=== PATIENT | male | born 1975 | race African-American/Black ===

== ENCOUNTER 2016-03-03 02:19 | Emergency (ER) | payer SELFPAY ==
[2016-03-03] MEDS ORDERED: KETOROLAC TROMETHAMINE INJ/PF 30 MG/1 ML SDV IV ONE (03:30)
[2016-03-03] MEDS ORDERED: METHOCARBAMOL INJ/PF 1000 MG/10 ML SDV IV ONE (03:31)
[2016-03-03] MEDS ORDERED: METOCLOPRAMIDE HCL INJ/PF 10 MG/2 ML SDV IV ONE (03:31)
[2016-03-03] MEDS ORDERED: DIPHENHYDRAMINE HCL 50 MG/ML VIAL IV ONE (03:31)
[2016-03-03] MEDS ORDERED: NORMAL SALINE 1000 ML 1,000 ML IV ONE (03:31)
--- NOTE | 2016-03-03 03:33 | ER Document Report ---
ED Headache - General Chief Complaint: Headache Stated Complaint: HEADACHE Time seen by provider: 03:25 Notes: Patient is a 40-year-old male that comes emergency department for chief complaint of a headache that has been going on intermittently for over a week. He states that he is not nauseated and has not had vomiting, he is slightly sensitive to the light, he is not sensitive to sound. Patient states he has had headaches like this in the past but not for a while. Patient reports soreness in his neck and right shoulder area, he is a scott at work. He denies any injuries to his shoulders, neck, head, denies fevers. Patient denies any daily medications, used to be on blood pressure medication but no longer is. TRAVEL OUTSIDE OF THE [place] IN LAST 30 DAYS: No - Related Data Allergies/Adverse Reactions: No Known Allergies Allergy (Verified 12/14/15 11:10) Past Medical History - General Information source: Patient - Social History Smoking Status: Former Smoker Frequency of alcohol use: Social Drug Abuse: None Lives with: Family Family History: CVA, Hypertension, Malignancy Patient has suicidal ideation: No Patient has homicidal ideation: No - Past Medical History Cardiac Medical History: Reports: Hx Hypertension Neurological Medical History: Reports: Hx Migraine Endocrine Medical History: Reports: Hx Diabetes Mellitus Type 2 Renal/ Medical History: Denies: Hx Peritoneal Dialysis Past Surgical History: Reports: Hx Orthopedic Surgery - left hip - Immunizations Hx Diphtheria, Pertussis, Tetanus Vaccination: Yes Review of Systems - Review of Systems Constitutional: No symptoms reported EENT: No symptoms reported Cardiovascular: No symptoms reported Respiratory: No symptoms reported Gastrointestinal: No symptoms reported Genitourinary: No symptoms reported Male Genitourinary: No symptoms reported Musculoskeletal: See HPI Skin: No symptoms reported Hematologic/Lymphatic: No symptoms reported Neurological/Psychological: See HPI Physical Exam - Vital signs Vitals: Temp Pulse Resp BP Pulse Ox 98.1 F 89 18 130/82 H 99 03/03/16 02:27 03/03/16 02:27 03/03/16 02:27 03/03/16 02:27 03/03/16 02:27 Interpretation: Normal - General General appearance: Alert In distress: Mild - Patient is mildly uncomfortable, squinting his eyes, moves slightly stiffly - HEENT Head: Normocephalic, Atraumatic Eyes: Normal Conjunctiva: Normal Extraocular movements intact: Yes Eyelashes: Normal Pupils: PERRL Sinus: Normal Nasal: Normal Mouth/Lips: Normal Mucous membranes: Normal Pharynx: Normal Neck: Other - There is no nuchal rigidity. Patient has tenderness over the left trapezius and sternocleidomastoid with slightly tender lateral rotation of the neck. No midline cervical tenderness - Respiratory Respiratory status: No respiratory distress Chest status: Nontender Breath sounds: Normal. No: Decreased air movement, Wheezing Chest palpation: Normal - Cardiovascular Rhythm: Regular. No: Tachycardia Heart sounds: Normal auscultation, S1 appreciated, S2 appreciated Murmur: No - Abdominal Inspection: Normal Distension: No distension Bowel sounds: Normal Tenderness: Nontender. No: Tender, Guarding Organomegaly: No organomegaly - Back Back: Normal, Nontender. No: Tender, Vertebra tenderness - Extremities General upper extremity: Normal inspection, Nontender, Normal color, Normal ROM , Normal temperature General lower extremity: Normal inspection, Nontender, Normal color, Normal ROM , Normal temperature, Normal weight bearing. No: Thomas's sign - Neurological Neuro grossly intact: Yes Cognition: Normal Orientation: AAOx4 Dutch Coma Scale Eye Opening: Spontaneous Dutch Coma Scale Verbal: Oriented [place] Coma Scale Motor: Obeys Commands [place] Coma Scale Total: 15 Speech: Normal Motor strength normal: LUE, RUE, LLE, RLE Sensory: Normal - Psychological Associated symptoms: Normal affect, Normal mood - Skin Skin Temperature: Warm Skin Moisture: Dry Skin Color: Normal Course - Re-evaluation Re-evalutation: After treatment with Robaxin, Toradol, Benadryl, Reglan, IV fluids patient's headache completely resolved. Patient sitting up and smiling. Vision provided with muscle relaxer, Fioricet, clinical examination and symptoms most consistent with tension headache. Discussed primary care follow-up and return precautions. Patient states understanding and agreement. - Vital Signs Vital signs: Temp Pulse Resp BP Pulse Ox 97.7 F 83 16 125/78 99 03/03/16 06:15 03/03/16 06:15 03/03/16 06:15 03/03/16 06:15 03/03/16 06:15 Discharge - Discharge Clinical Impression: Headache Qualifiers: Headache type: tension-type Headache chronicity pattern: episodic headache Intractability: not intractable Qualified Code(s): G44.219 - Episodic tension- type headache, not intractable Condition: Stable Disposition: HOME, SELF-CARE Additional Instructions: Your evaluation, symptoms, and response to treatment are consistent with a tension headache. Apply heat to your shoulder, take the muscle relaxant (Flexeril) given if needed (especially at night). Take the Fioricet medication for headache if needed Follow-up with primary care. Return to the emergency department for any concerning or worsening symptoms. Prescriptions: Butalb/Acetaminophen/Caffeine [Fioricet (50-325-40 mg) Tablet] 1 tab PO Q4HP PRN #20 tab PRN Reason: Cyclobenzaprine HCl [Flexeril 5 mg Tablet] 5 mg PO TID #20 tablet Forms: Return to Work
[2016-03-03 06:36] VITALS: BP 125/78
== END 2016-03-03 06:20 | disposition home or self-care (01) ==
LOC: ER 02:19
DX: G44.219 Episodic tension-type headache, not intractable (principal); H53.149 Visual discomfort, unspecified; I10 Essential (primary) hypertension; E11.9 Type 2 diabetes mellitus without complications
CPT/HCPCS: 99284; 96361; 96374; 96375; J1200; J2800; J1885; J2765; J7030

== ENCOUNTER 2016-05-03 03:36 | Emergency (ER) | payer SELFPAY ==
--- NOTE | 2016-05-03 06:41 | ER Document Report ---
ED General - General Chief Complaint: Numbness of Arm Stated Complaint: ARM NUMBNESS Mode of Arrival: Ambulatory Information source: Patient Notes: 41-year-old male history of carpal tunnel syndrome in the right hand presents with complaints of left hand fourth and fifth digit numbness. Patient denies any pain denies any weakness denies any headaches or confusion. Patient has repetitive motions at work TRAVEL OUTSIDE OF THE [place] IN LAST 30 DAYS: No - HPI Onset: Last week Onset/Duration: Persistent Quality of pain: No pain Severity: Mild Pain Level: Denies Associated symptoms: Other Exacerbated by: Movement Relieved by: Denies Similar symptoms previously: Yes - on right hand Recently seen / treated by doctor: No - Related Data Allergies/Adverse Reactions: No Known Allergies Allergy (Verified 05/03/16 04:13) Past Medical History - Social History Smoking Status: Current Some Day Smoker Cigarette use (# per day): Yes Chew tobacco use (# tins/day): No Smoking Education Provided: No Frequency of alcohol use: Rare Drug Abuse: None Family History: CVA, Hypertension, Malignancy - Past Medical History Cardiac Medical History: Reports: Hx Hypertension Neurological Medical History: Reports: Hx Migraine Endocrine Medical History: Reports: Hx Diabetes Mellitus Type 2 Renal/ Medical History: Denies: Hx Peritoneal Dialysis Past Surgical History: Reports: Hx Orthopedic Surgery - left hip - Immunizations Hx Diphtheria, Pertussis, Tetanus Vaccination: Yes Review of Systems - Review of Systems Notes: REVIEW OF SYSTEMS: CONSTITUTIONAL : Denies fever, chills, or sweats. Denies recent illness. EENT: Denies eye, ear, throat, or mouth pain or symptoms. Denies nasal or sinus congestion or discharge. Denies throat, tongue, or mouth swelling or difficulty swallowing. CARDIOVASCULAR: Denies chest pain. Denies palpitations or racing or irregular heart beat. Denies ankle edema. RESPIRATORY: Denies cough, cold, or chest congestion. Denies shortness of breath, difficulty breathing, or wheezing. GASTROINTESTINAL: Denies abdominal pain or distention. Denies nausea, vomiting , or diarrhea. Denies blood in vomitus, stools, or per rectum. Denies black, tarry stools. Denies constipation. GENITOURINARY: Denies difficulty urinating, painful urination, burning, frequency, blood in urine, or discharge. MUSCULOSKELETAL: Denies back or neck pain or stiffness. Denies joint pain or swelling. SKIN: Denies rash, lesions or sores. HEMATOLOGIC : Denies easy bruising or bleeding. LYMPHATIC: Denies swollen, enlarged glands. NEUROLOGICAL: Numbness fourth and fifth digits PSYCHIATRIC: Denies anxiety or stress. Denies depression, suicidal ideation, or homicidal ideation. ALL OTHER SYSTEMS REVIEWED AND NEGATIVE. Dictation was performed using [employer] voice recognition software PHYSICAL EXAMINATION: GENERAL: Well-appearing, well-nourished and in no acute distress. HEAD: Atraumatic, normocephalic. EYES: Pupils equal round extraocular movements intact, conjunctiva are normal. ENT: Nares patent NECK: Normal range of motion LUNGS: No respiratory distress Musculoskeletal: Normal range of motion NEUROLOGICAL: Admits to paresthesia left hand fourth and fifth digits PSYCH: Normal mood, normal affect. SKIN: Warm, Dry, normal turgor, no rashes or lesions noted. Physical Exam - Vital signs Vitals: Temp Resp BP Pulse Ox 98.8 F 16 128/78 H 99 05/03/16 04:01 05/03/16 04:01 05/03/16 04:01 05/03/16 04:01 Course - Re-evaluation Re-evalutation: 05/03/16 15:32 Patient has carpal tunnel syndrome based on median nerve involvement of the left hand. CT of the head was negative. Patient will placed in splint is otherwise stable for discharge. Patient given follow-up with orthopedics if symptoms do not improve with the splint After performing a Medical Screening Examination, I estimate there is LOW risk for INTRACRANIAL HEMORRHAGE, UNSTABLE SPINE FRACTURE, CENTRAL CORD SYNDROME, CAUDA EQUINA, THORACIC AORTIC DISSECTION, PNEUMOTHORAX, PERFORATED BOWEL, RUPTURED ABDOMINAL AORTIC ANEURYSM, ACUTE TENDON RUPTURE, COMPARTMENT SYNDROME, or OPEN FRACTURE, thus I consider the discharge disposition reasonable. Also, there is no evidence or peritonitis, sepsis, or toxicity. The patient and I have discussed the diagnosis and risks, and we agree with discharging home to follow-up with their primary doctor with the understanding that symptoms and presentations can change. We also discussed returning to the Emergency Department immediately if new or worsening symptoms occur. We have discussed the symptoms which are most concerning (e.g., bloody stool, fever, changing or worsening pain, vomiting) that necessitate immediate return. - Vital Signs Vital signs: Temp Pulse Resp BP Pulse Ox 97.9 F 84 13 126/87 H 98 05/03/16 06:52 05/03/16 06:52 05/03/16 06:52 05/03/16 06:52 05/03/16 06:52 - Diagnostic Test Radiology reviewed: Image reviewed, Reports reviewed Procedures - Immobilization Left Wrist Time completed: 06:40 Pre-Proc Neuro Vasc Exam: Normal Immobilizer type: Cock-up Performed by: PCT Post-Proc Neuro Vasc Exam: Normal Alignment checked and good: Yes Discharge - Discharge Clinical Impression: Carpal tunnel syndrome of left wrist, medial nerve numb Condition: Stable Disposition: HOME, SELF-CARE Instructions: Carpal Tunnel Syndrome ([facility]) Additional Instructions: Please allow patient to wear splint at work for the next 6 weeks Referrals: TRINIDAD BRESWTER MD [ACTIVE STAFF] - Follow up tomorrow
[2016-05-03 07:03] VITALS: BP 126/87
== END 2016-05-03 07:02 | disposition home or self-care (01) ==
LOC: ER 03:36
DX: G56.02 Carpal tunnel syndrome, left upper limb (principal); R20.0 Anesthesia of skin; I10 Essential (primary) hypertension; E11.9 Type 2 diabetes mellitus without complications; F17.210 Nicotine dependence, cigarettes, uncomplicated
CPT/HCPCS: 99284; 70450; L3984

== ENCOUNTER 2016-06-16 12:03 | Emergency (ER) | payer SELFPAY ==
--- NOTE | 2016-06-16 14:35 | ER Document Report ---
ED Extremity Problem, Lower - General Chief Complaint: Knee Injury Stated Complaint: KNEE INJURY Time seen by provider: 13:35 Mode of Arrival: Ambulatory Information source: Patient Notes: 41-year-old male presents to ED for complaint of left knee pain. He states he injured it playing basketball on Tuesday. He states his knee has been swollen and he has not been able to go back to work. He states he was feeling better today and went in to go to work and his boss told him he had to get it checked out and get a work note before he could come back to work. Patient states she is able to walk on his knee he just has some discomfort. Patient has a history of migraines a right knee injury but no surgeries. TRAVEL OUTSIDE OF THE [place] IN LAST 30 DAYS: No - HPI Patient complains to provider of: Injury, Pain, Swelling Location: Knee Occurred: Other - Left Tuesday Where: Sports - Plan basketball Onset/Duration: Worse Quality of pain: Achy Severity: Mild Pain Level: 1 Context: Other - Banged with another knee Recent injury: Yes Associated symptoms: Painful ambulation - Much improved Exacerbated by: Movement, Walking Relieved by: Elevation, Ice, Rest - Related Data Allergies/Adverse Reactions: No Known Allergies Allergy (Verified 06/16/16 12:17) Past Medical History - General Information source: Patient - Social History Smoking Status: Current Every Day Smoker Cigarette use (# per day): Yes - 6 cigarettes a day Chew tobacco use (# tins/day): No Smoking Education Provided: Yes - less than 2 minutes Frequency of alcohol use: Occasional Drug Abuse: None Occupation: [employer] Lives with: Parents Family History: Arthritis, CAD, CVA, Hyperlipidemia, Hypertension, Malignancy Patient has suicidal ideation: No Patient has homicidal ideation: No - Past Medical History Cardiac Medical History: Reports: Hx Hypertension Pulmonary Medical History: Reports: None EENT Medical History: Reports: None Neurological Medical History: Reports: Hx Migraine Endocrine Medical History: Reports: None Renal/ Medical History: Reports: None Malignancy Medical History: Reports None GI Medical History: Reports: None Musculoskeltal Medical History: Reports Hx Musculoskeletal Trauma - Right knee Skin Medical History: Reports None Psychiatric Medical History: Reports: None Traumatic Medical History: Reports: None Infectious Medical History: Reports: None Surgical Hx: Negative Past Surgical History: Reports: None - Immunizations Hx Diphtheria, Pertussis, Tetanus Vaccination: Yes Review of Systems - Review of Systems Constitutional: No symptoms reported EENT: No symptoms reported Cardiovascular: No symptoms reported Respiratory: No symptoms reported Gastrointestinal: No symptoms reported Genitourinary: No symptoms reported Male Genitourinary: No symptoms reported Musculoskeletal: Joint pain - Right knee pain Skin: No symptoms reported Hematologic/Lymphatic: No symptoms reported Neurological/Psychological: No symptoms reported -: Yes All other systems reviewed and negative Physical Exam - Vital signs Vitals: Temp Pulse Resp BP Pulse Ox 98.6 F 102 H 18 129/77 H 98 06/16/16 12:17 06/16/16 12:17 06/16/16 12:17 06/16/16 12:17 06/16/16 12:17 Interpretation: Normal - General General appearance: Appears well, Alert - HEENT Head: Normocephalic, Atraumatic Eyes: Normal Pupils: PERRL - Respiratory Respiratory status: No respiratory distress Chest status: Nontender Breath sounds: Normal Chest palpation: Normal - Cardiovascular Rhythm: Regular Heart sounds: Normal auscultation Murmur: No - Abdominal Inspection: Normal Distension: No distension Bowel sounds: Normal Tenderness: Nontender Organomegaly: No organomegaly - Back Back: Normal, Nontender - Extremities General upper extremity: Normal inspection, Nontender, Normal color, Normal ROM , Normal temperature General lower extremity: Normal inspection, Normal color, Normal ROM, Normal temperature, Normal weight bearing. No: Thomas's sign Hip: Normal, Nontender Thigh: Normal, Nontender Knee: Tender - left Calf: Normal, Nontender Ankle: Normal, Nontender Foot: Normal, Nontender - Neurological Neuro grossly intact: Yes Cognition: Normal Orientation: AAOx4 [place] Coma Scale Eye Opening: Spontaneous [place] Coma Scale Verbal: Oriented [place] Coma Scale Motor: Obeys Commands Dutch Coma Scale Total: 15 Speech: Normal Motor strength normal: LUE, RUE, LLE, RLE Sensory: Normal - Psychological Associated symptoms: Normal affect, Normal mood - Skin Skin Temperature: Warm Skin Moisture: Dry Skin Color: Normal Course - Re-evaluation Re-evalutation: 06/16/16 14:48 Discussed x-ray with patient we'll discharge patient home with Isaiah wrap to the left knee. Patient to follow-up with orthopedics. - Vital Signs Vital signs: Temp Pulse Resp BP Pulse Ox 98.6 F 88 16 122/71 99 06/16/16 12:17 06/16/16 14:45 06/16/16 14:45 06/16/16 14:45 06/16/16 14:45 - Diagnostic Test Radiology reviewed: Reports reviewed Procedures - Immobilization Left Knee Time completed: 14:49 Immobilizer type: Isaiah wrap Performed by: Provider Post-Proc Neuro Vasc Exam: Normal Alignment checked and good: Yes Discharge - Discharge Clinical Impression: Left knee pain Qualifiers: Chronicity: acute Qualified Code(s): M25.562 - Pain in left knee Condition: Stable Disposition: HOME, SELF-CARE Additional Instructions: SPRAIN: Your injury is a sprain. A sprain results from stretching or tearing of the ligaments, usually from a twisting injury. The ligaments will require time and protection in order to heal properly. Many sprains are quite disabling and should be taken seriously. The usual initial treatment of sprains is cold packs, elevation, and rest of the injured area. Your physician has assessed the seriousness of your ligament injury, and has outlined a treatment plan. Understand that this treatment may change, depending on how you progress. If a re-examination was recommended, it is important that you follow up as instructed. Call the doctor any time if there is severe pain, numbness, or loss of function in the injured area. ISAIAH WRAP: A compression dressing (isaiah wrap) has been placed. This helps hold the area still. It limits swelling and internal bleeding. The wrap should be comfortably snug -- not tight. You should feel a sense of pressure, but not severe pain under the wrap. Unless the physician tells you otherwise, you can adjust the wrap for comfort. If the wrap causes symptoms suggesting it's too tight -- uncomfortable pressure, swelling or discoloration beyond the wrap, numbness, or severe pain - - you must loosen the wrap. If these symptoms don't resolve promptly, return for re-evaluation. ICE & ELEVATION: Apply ice packs frequently against the painful area. Many different schedules are recommended, such as "20 minutes on, 20 minutes off" or "one hour ice, two hours rest." If you need to work, you may need to go longer between ice treatments. You should plan to have the area ice packed AT LEAST one- fourth of the time. The ice should be applied over the wrap, tape, or splint, or over a layer of cloth -- not directly against the skin. Some ice bags have a built-in cloth and can be put directly on the skin. Your injured part should be elevated as much as possible over the next 48 hours. Try to keep the injury above the level of the heart. Avoid use of the injured area. Elevation and rest will decrease the swelling. USE OF [id number] IBUPROFEN: Ibuprofen (Advil, Nuprin, Medipren, Motrin IB) is a medication for fever and pain control. In addition, it has anti- inflammatory effects which may be beneficial, especially in the treatment of injuries. It's best to take ibuprofen with food. Persons with ulcer disease or allergy to aspirin should notify their physician of this before taking ibuprofen. Ibuprofen can be given every four to six hours, for a total of four doses daily. Age Pain or fever dose Antiinflammatory dose 6-8 yr 200 mg (1 tab) 200 mg (1 tab) 9-11 yr 200 mg (1 tab) 200-400 mg (1-2 tab) 11-14 yr 200-400 mg (1-2 tab) 400 mg (2 tab) 15-adult 400 mg (2 tab) 600 mg (3 tab) FOLLOW-UP CARE: If you have been referred to a physician for follow-up care, call the physician s office for an appointment as you were instructed or within the next two days. If you experience worsening or a significant change in your symptoms, notify the physician immediately or return to the Emergency Department at any time for re-evaluation. Please complete the patient's satisfaction survey if you get one and return. If you do not receive a survey you can go to [facility] website [email or web address] and place your comments about your very good care. Thank you very much. It was a pleasure be in your medical provider today. Prescriptions: Ibuprofen 800 mg PO Q8HP PRN #14 tablet PRN Reason: Forms: Elevated Blood Pressure, Smoking Cessation Education, Return to Work Referrals: TRINIDAD BREWSTER MD [ACTIVE STAFF] - Follow up as needed
[2016-06-16 14:47] VITALS: BP 122/71
== END 2016-06-16 14:45 | disposition home or self-care (01) ==
LOC: ER 12:03
DX: M25.562 Pain in left knee (principal); W50.0XXA Accidental hit or strike by another person, initial encounter; Y93.67 Activity, basketball; I10 Essential (primary) hypertension; F17.210 Nicotine dependence, cigarettes, uncomplicated; Z71.6 Tobacco abuse counseling
CPT/HCPCS: 99283

== ENCOUNTER 2016-11-23 03:35 | Emergency (ER) | payer SELFPAY ==
[2016-11-23] MEDS ORDERED: OXYCODONE-ACETAMINOPHEN 5-325 MG TABLET PO ONE (05:40)
[2016-11-23] MEDS ORDERED: PROMETHAZINE HCL 25 MG TABLET PO ONE (05:40)
[2016-11-23] MEDS ORDERED: LIDOCAINE 1% INJ-PF (10 MG/ML) 30 ML SDV INJ ONE (05:41)
--- NOTE | 2016-11-23 05:42 | ER Document Report ---
ED Medical Screen (RME) - General Chief Complaint: Abscess Stated Complaint: POSSIBLE BOIL ON BACK PUTTING PRESSURE ON CHEST Time Seen by Provider: 11/23/16 05:33 Notes: 41-year-old male, chief complaint of large abscess on his left upper back. He has had this before and had it drained before with good results. Denies fever, nausea. TRAVEL OUTSIDE OF THE [place] IN LAST 30 DAYS: No - Related Data Allergies/Adverse Reactions: No Known Allergies Allergy (Verified 11/23/16 03:50) Past Medical History - Social History Family history: None - Past Medical History Cardiac Medical History: Reports: Hx Hypertension Neurological Medical History: Reports: Hx Migraine Endocrine Medical History: Reports: Hx Diabetes Mellitus Type 2 Renal/ Medical History: Denies: Hx Peritoneal Dialysis Musculoskeltal Medical History: Reports Hx Musculoskeletal Trauma - Right knee Surgical Hx: Negative Past Surgical History: Reports: Hx Orthopedic Surgery - left hip - Immunizations Hx Diphtheria, Pertussis, Tetanus Vaccination: Yes Physical Exam - Vital signs Vitals: Temp Pulse Resp BP Pulse Ox 98.7 F 99 18 114/71 97 11/23/16 03:50 11/23/16 03:50 11/23/16 03:50 11/23/16 03:50 11/23/16 03:50 - Skin Skin irregularity: Abscess - Large sebaceous cyst abscess on left upper back Course - Vital Signs Vital signs: Temp Pulse Resp BP Pulse Ox 98.7 F 99 18 114/71 97 11/23/16 03:50 11/23/16 03:50 11/23/16 03:50 11/23/16 03:50 11/23/16 03:50
--- NOTE | 2016-11-23 07:50 | ER Document Report ---
ED Skin Rash/Insect Bite/Abscs - General Chief Complaint: Abscess Stated Complaint: POSSIBLE BOIL ON BACK PUTTING PRESSURE ON CHEST Time Seen by Provider: 11/23/16 05:33 Mode of Arrival: Ambulatory Information source: Patient Notes: Patient is a 41-year-old male who presents to the ER today for 3 days of an abscess to his left upper back. Patient has had this before and the exact same spot and it has been drained successfully. He denies any history of MRSA. He denies drainage, fevers or chills. TRAVEL OUTSIDE OF THE [place] IN LAST 30 DAYS: No - Related Data Allergies/Adverse Reactions: No Known Allergies Allergy (Verified 11/23/16 03:50) Past Medical History - General Information source: Patient - Social History Smoking Status: Unknown if Ever Smoked Family History: Arthritis, CAD, CVA, Hyperlipidemia, Hypertension, Malignancy Patient has suicidal ideation: No Patient has homicidal ideation: No - Past Medical History Cardiac Medical History: Reports: Hx Hypertension Neurological Medical History: Reports: Hx Migraine Endocrine Medical History: Reports: Hx Diabetes Mellitus Type 2 Renal/ Medical History: Denies: Hx Peritoneal Dialysis Musculoskeltal Medical History: Reports Hx Musculoskeletal Trauma - Right knee Surgical Hx: Negative Past Surgical History: Reports: Hx Orthopedic Surgery - left hip - Immunizations Hx Diphtheria, Pertussis, Tetanus Vaccination: Yes Review of Systems - Review of Systems Constitutional: No symptoms reported EENT: No symptoms reported Cardiovascular: No symptoms reported Respiratory: No symptoms reported Gastrointestinal: No symptoms reported Genitourinary: No symptoms reported Male Genitourinary: No symptoms reported Musculoskeletal: No symptoms reported Skin: See HPI Hematologic/Lymphatic: No symptoms reported Neurological/Psychological: No symptoms reported Physical Exam - Vital signs Vitals: Temp Pulse Resp BP Pulse Ox 98.7 F 99 18 114/71 97 11/23/16 03:50 11/23/16 03:50 11/23/16 03:50 11/23/16 03:50 11/23/16 03:50 - Notes Notes: PHYSICAL EXAMINATION: GENERAL: Well-appearing, eating fast food in the room, and in no acute distress. HEAD: Atraumatic, normocephalic. EYES: Pupils equal round and reactive to light, extraocular movements intact, sclera anicteric, conjunctiva are normal. NECK: Normal range of motion, supple without lymphadenopathy LUNGS: CTAB and equal. No wheezes rales or rhonchi. HEART: Regular rate and rhythm without murmurs EXTREMITIES: Normal range of motion, no pitting edema. No cyanosis. NEUROLOGICAL: Cranial nerves grossly intact. Normal sensory/motor exams. PSYCH: Normal mood, normal affect. SKIN: Warm, Dry, normal turgor, 4 cm in diameter erythematous, fluctuant, tender abscess to the left upper back Course - Vital Signs Vital signs: Temp Pulse Resp BP Pulse Ox 98.7 F 99 18 114/71 97 11/23/16 03:50 11/23/16 03:50 11/23/16 03:50 11/23/16 03:50 11/23/16 03:50 Procedures - Incision and Drainage Left Upper Back Time completed: 07:51 Type: Simple Anesthetic type: 1% Lidocaine mL's of anesthetic: 2 Blade size: 11 I&D procedure: Betadine prep applied Incision Method: Incision made by scalpel Amount/type of drainage: pus and blood Discharge - Discharge Clinical Impression: Infected cyst of skin Condition: Stable Disposition: HOME, SELF-CARE Instructions: Post Incision and Drainage, Trimethoprim-Sulfa ([facility]), Abscess ( [facility]) Additional Instructions: Return immediately for any new or worsening symptoms. Follow up with primary care provider, call tomorrow to make followup appointment. Prescriptions: Sulfamethoxazole/Trimethoprim [Bactrim Ds Tablet] 1 each PO BID #20 tablet Forms: Return to Work Referrals: SEAN REGALADO MD [ACTIVE STAFF] - Follow up as needed
[2016-11-23] MEDS ORDERED: HYDROCODONE/ACETAMINOPHEN 5-325 MG 6 TAB/DSPK PO PRN (07:57)
[2016-11-23 08:10] VITALS: BP 134/106
== END 2016-11-23 08:09 | disposition home or self-care (01) ==
LOC: ER 03:35
PROC: 0H96XZZ Drainage of Back Skin, External Approach (ICD-10-PCS; principal; 2016-11-23)
DX: L02.212 Cutaneous abscess of back [any part, except buttock and flank] (principal); L72.9 Follicular cyst of the skin and subcutaneous tissue, unspecified
CPT/HCPCS: 87070; 87075; 87205; 99283

== ENCOUNTER 2018-01-01 21:36 | Emergency (ER) | payer SELFPAY ==
[2018-01-01] MEDS ORDERED: LIDOCAINE 1%/EPINEPHRINE INJ 20 ML VIAL INJ ONE (23:42)
[2018-01-02] MEDS ORDERED: SULFAMETHOXAZOLE/TRIMETHOPRIM 800-160 MG TABLET PO ONE
[2018-01-02] MEDS ORDERED: ACETAMINOPHEN 325 MG TABLET PO ONE (00:01)
--- NOTE | 2018-01-02 00:02 | ER Document Report ---
ED General - General Chief Complaint: Abscess Stated Complaint: POSSIBLE CYST Time Seen by Provider: 01/01/18 23:03 Notes: Patient is a 42-year-old male without chronic medical problems who presents with an abscess of his mid back. Patient states that over the past several days he has had a progressively worsening swelling to the mid back. Describes it as being extremely painful with a throbbing, aching, constant pain. States touching the area in any way shape or form worsens the pain. Nothing improves the pain. States this feels very similar to when he has had infected cysts in the past. He denies associated fever or constitutional symptoms. He has not seen his general doctor regarding today's concerns. TRAVEL OUTSIDE OF THE [place] IN LAST 30 DAYS: No - Related Data Allergies/Adverse Reactions: No Known Allergies Allergy (Verified 11/23/16 03:50) Past Medical History - General Information source: Patient - Social History Smoking Status: Current Every Day Smoker Frequency of alcohol use: Occasional Drug Abuse: None Lives with: Spouse/Significant other Family History: Arthritis, CAD, CVA, Hyperlipidemia, Hypertension, Malignancy Patient has suicidal ideation: No Patient has homicidal ideation: No - Past Medical History Cardiac Medical History: Reports: Hx Hypertension Neurological Medical History: Reports: Hx Migraine Endocrine Medical History: Reports: Hx Diabetes Mellitus Type 2 Renal/ Medical History: Denies: Hx Peritoneal Dialysis Musculoskeletal Medical History: Reports Hx Musculoskeletal Trauma - Right knee Past Surgical History: Reports: Hx Orthopedic Surgery - left hip - Immunizations Hx Diphtheria, Pertussis, Tetanus Vaccination: Yes Review of Systems - Review of Systems Notes: Constitutional: Negative for fever. HENT: Negative for sore throat. Eyes: Negative for visual changes. Cardiovascular: Negative for chest pain. Respiratory: Negative for shortness of breath. Gastrointestinal: Negative for abdominal pain, vomiting or diarrhea. Genitourinary: Negative for dysuria. Musculoskeletal: Negative for back pain. Skin: Positive for back abscess Neurological: Negative for headaches, weakness or numbness. 10 point ROS negative except as marked above and in HPI. Physical Exam - Vital signs Vitals: Temp Pulse Resp BP Pulse Ox 98.8 F 103 H 16 123/78 97 01/01/18 22:25 01/01/18 22:25 01/01/18 22:25 01/01/18 22:25 01/01/18 22:25 Interpretation: Tachycardic Notes: PHYSICAL EXAMINATION: GENERAL: Appears moderately uncomfortable but in no acute distress HEAD: Atraumatic, normocephalic. EYES: sclera anicteric, conjunctiva are normal. ENT: Moist mucous membranes. NECK: Normal range of motion LUNGS: Normal work of breathing HEART: 2+ radial pulses bilaterally EXTREMITIES: no pitting or edema. No cyanosis. NEUROLOGICAL: No focal neurological deficits. Moves all extremities spontaneously and on command. PSYCH: Normal mood, normal affect. SKIN: Warm, Dry, normal turgor, there is a 2 x 2 centimeter cystic appearing abscess to the right mid back approximately 3 cm lateral to the mid thoracic spine with surrounding erythema Course - Re-evaluation Re-evalutation: 01/01/18 23:59 Patient presents with an abscess in the mid back that appeared to have started as a cyst. The area was incised and drained without any difficulty. The patient has been started on trimethoprim sulfamethoxazole for the next 1 week for MRSA coverage. No indication for imaging or labs. Patient does not meet sepsis criteria. Otherwise very well in appearance. At this time will discharge with return precautions and follow-up recommendations. Verbal discharge instructions given a the bedside and opportunity for questions given. Medication warnings reviewed. Patient is in agreement with this plan and has verbalized understanding of return precautions and the need for primary care follow-up in the next 24-72 hours. - Vital Signs Vital signs: Temp Pulse Resp BP Pulse Ox 97.8 F 95 18 131/85 H 100 01/02/18 00:22 01/02/18 00:22 01/02/18 00:22 01/02/18 00:22 01/02/18 00:22 Procedures - Incision and Drainage Mid- Back Type: Simple Anesthetic type: 1% Lidocaine w/epi mL's of anesthetic: 4 Blade size: 11 I&D procedure: Betadine prep applied Incision Method: Incision made by scalpel Amount/type of drainage: 10 cc purulent drainage Discharge - Discharge Clinical Impression: Back abscess Condition: Good Disposition: HOME, SELF-CARE Additional Instructions: You were seen for an abscess that required drainage. Please clean this area with soap and water twice daily and apply a topical antibiotic. Dress the area after each cleaning. Please return if you develop fever, vomiting, the pain at the site worsens, you notice spreading redness from the area, or you have any other symptoms that are concerning to you. Prescriptions: Sulfamethoxazole/Trimethoprim [Bactrim Ds Tablet] 2 tab PO BID #28 tablet Forms: Return to Work
[2018-01-02 00:24] VITALS: BP 131/85
== END 2018-01-02 00:27 | disposition home or self-care (01) ==
LOC: ER 21:36
DX: L02.212 Cutaneous abscess of back [any part, except buttock and flank] (principal); E11.9 Type 2 diabetes mellitus without complications; I10 Essential (primary) hypertension; F17.200 Nicotine dependence, unspecified, uncomplicated
CPT/HCPCS: 99283; 10060; J3490

== ENCOUNTER 2018-03-23 21:09 | Emergency (ER) | payer SELFPAY ==
[2018-03-23 21:32] VITALS: BP 127/76
== END 2018-03-24 07:00 | disposition left against medical advice (07) ==
LOC: ER 21:09
DX: Z53.21 Procedure and treatment not carried out due to patient leaving prior to being seen by health care provider (principal)

== ENCOUNTER 2018-06-13 12:16 | Emergency (ER) | payer SELFPAY ==
[2018-06-13 12:24] VITALS: BP 145/88
[2018-06-13] MEDS ORDERED: HYDROCODONE/ACETAMINOPHEN 5-325 MG TABLET PO ONE (13:34)
--- NOTE | 2018-06-13 13:36 | ER Document Report ---
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 Patient states since then he has had persistent left thumb pain and swelling. Patient is right-hand dominant. Patient reports injury occurred 3 weeks ago. Patient also complains of right elbow with a mobile nodular lesion that is been there for 2 years. Patient denies any change in the appearance of this lesion but wanted to have it evaluated as well. Associated Symptoms: Other - Left thumb injury Exacerbated by: Movement Relieved by: Remaining still Similar symptoms previously: No Recently seen / treated by doctor: No - ROS ROS below otherwise negative: Yes Systems Reviewed and Negative: Yes All other systems reviewed and negative - CONSTITUTIONAL Constitutional: DENIES: Fever, Chills - NEURO Neurology: DENIES: Weakness - REPRODUCTIVE Reproductive: DENIES: : - MUSCULOSKELETAL Musculoskeletal: REPORTS: Extremity pain - Left thumb, Swelling - DERM Skin Color: Normal Skin Problems: None Past Medical History - General Information source: Patient - Social History Smoking Status: Current Every Day Smoker Smoking Education Provided: Yes Frequency of alcohol use: None Drug Abuse: None Occupation: retail Lives with: Family Family History: Arthritis, CAD, CVA, Hyperlipidemia, Hypertension, Malignancy - Past Medical History Cardiac Medical History: Reports: Hx Hypertension Neurological Medical History: Reports: Hx Migraine Endocrine Medical History: Reports: Hx Diabetes Mellitus Type 2 Renal/ Medical History: Denies: Hx Peritoneal Dialysis Musculoskeletal Medical History: Reports Hx Musculoskeletal Trauma - Right knee Past Surgical History: Reports: Hx Orthopedic Surgery - left hip - Immunizations Hx Diphtheria, Pertussis, Tetanus Vaccination: Yes Vertical Provider Document - CONSTITUTIONAL Agree With Documented VS: Yes Exam Limitations: No Limitations General Appearance: WD/WN, No Apparent Distress - INFECTION CONTROL TRAVEL OUTSIDE OF THE [place] IN LAST 30 DAYS: No - HEENT HEENT: Atraumatic, Normocephalic - NECK Neck: Normal Inspection - RESPIRATORY Respiratory: No Respiratory Distress - CARDIOVASCULAR Pulses: Normal: Radial - MUSCULOSKELETAL/EXTREMETIES Musculoskeletal/Extremeties: MAEW, FROM, Tender - Patient with tenderness to left thumb CMC and DIP joints with 1+ edema, normal skin color and temperature overlying joint. Normal flexion and extension against resistance., Edema - NEURO Level of Consciousness: Awake, Alert, Appropriate Motor/Sensory: No Motor Deficit - DERM Integumentary: Warm, Dry Notes: Patient with mobile 2.5 cm subcutaneous lesion to the left elbow area, normal skin color overlying this area. Course - Re-evaluation Re-evalutation: 06/13/18 15:03 No acute fracture noted on x-ray. Patient without any fever, joint warmth or er ythema. No concern for septic arthritis at this time. Will treat as sprain at this time with orthopedic follow-up. - Vital Signs Vital signs: Temp Pulse Resp BP Pulse Ox 98.1 F 110 H 18 145/88 H 97 06/13/18 12:23 06/13/18 12:23 06/13/18 12:23 06/13/18 12:23 06/13/18 12:23 - Diagnostic Test Radiology reviewed: Image reviewed, Reports reviewed Procedures - Immobilization Left Thumb Pre-Proc Neuro Vasc Exam: Normal Immobilizer type: Thumb spica Performed by: PCT Post-Proc Neuro Vasc Exam: Normal Alignment checked and good: Yes Discharge - Discharge Clinical Impression: Subcutaneous cyst Left thumb sprain Qualifiers: Encounter type: initial encounter Sprain of finger site: unspecified site Qualified Code(s): S63.602A - Unspecified sprain of left thumb, initial encounter Condition: Stable Disposition: HOME, SELF-CARE Instructions: Sprained Thumb ([facility]), Temporary Splint ([facility]) Additional Instructions: Return immediately for any new or worsening symptoms Followup with your primary care provider, call tomorrow to make a followup a ppointment Wear splint for the next 4 to 5 days and then remove. If still having pain follow-up with orthopedic hand specialist for a recheck. Follow-up with a general surgeon for further management of cystic lesion to the elbow area. Call tomorrow for an appointment Prescriptions: Naproxen [Naprosyn 250 Nmg Tablet] 1 tab PO BID #14 tablet Forms: Smoking Cessation Education, Return to Work Referrals: DIEGO BRAVO DO [ACTIVE STAFF] - Follow up as needed [facility] [Provider Group] - Follow up in 1 week
--- NOTE | 2018-06-13 14:50 | RADIOLOGY REPORT (SQ) ---
EXAM DESCRIPTION: FINGER LEFT COMPLETED DATE/TIME: 06/13/2018 2:35 pm REASON FOR STUDY: thumb pain after lifting tool box COMPARISON: None. NUMBER OF VIEWS: Three views. TECHNIQUE: AP, lateral, and oblique images acquired of the left thumb of the left hand. LIMITATIONS: None. FINDINGS: MINERALIZATION: Normal. BONES: No acute fracture or dislocation. No worrisome bone lesions. SOFT TISSUES: No soft tissue swelling. No foreign body. OTHER: No other significant finding. IMPRESSION: 1. NO RADIOGRAPHIC EVIDENCE OF ACUTE INJURY. TECHNICAL DOCUMENTATION: JOB ID: [id number] [employer]- All Rights Reserved Reading location - IP/workstation name: [email or web address]
== END 2018-06-13 15:36 | disposition home or self-care (01) ==
LOC: ER 12:16
DX: S63.602A Unspecified sprain of left thumb, initial encounter (principal); X58.XXXA Exposure to other specified factors, initial encounter; F17.200 Nicotine dependence, unspecified, uncomplicated; E11.9 Type 2 diabetes mellitus without complications
CPT/HCPCS: 99283

== ENCOUNTER 2018-09-06 09:49 | Emergency (ER) | payer SELFPAY ==
[2018-09-06] MEDS ORDERED: ASPIRIN 81 MG TABLET, CHEWABLE PO ONE (10:33)
--- NOTE | 2018-09-06 10:35 | ER Document Report ---
ED Medical Screen (RME) - General Chief Complaint: Chest Pain Stated Complaint: CHEST PAIN Time Seen by Provider: 09/06/18 10:29 Mode of Arrival: Ambulatory Information source: Patient Notes: 42-year-old male presents to ED for complaint of chest pain x2 days. He states is all on the right side of his chest. He states it starts in his right neck goes across his right shoulder upper right chest and down his right arm causing numbness to his fingers. He states is been going on and off for 2 days. He denies any past medical history he states he does smoke about 1/2 pack a day does not drink or do any drugs. He does have pain to palpation and range of motion to the right shoulder. Is alert and oriented respirations regular and unlabored. I have greeted and performed a rapid initial assessment of this patient. A comprehensive ED assessment and evaluation of the patient, analysis of test results and completion of medical decision making process will be conducted by an additional ED providers. Dictation of this chart was performed using voice recognition software; therefore, there may be some unintended grammatical errors. TRAVEL OUTSIDE OF THE [place] IN LAST 30 DAYS: No - Related Data Allergies/Adverse Reactions: No Known Allergies Allergy (Verified 11/23/16 03:50) Past Medical History - Social History Family history: None - Past Medical History Cardiac Medical History: Reports: Hx Hypertension Neurological Medical History: Reports: Hx Migraine Endocrine Medical History: Reports: Hx Diabetes Mellitus Type 2 Renal/ Medical History: Denies: Hx Peritoneal Dialysis Musculoskeltal Medical History: Reports Hx Musculoskeletal Trauma - Right knee Past Surgical History: Reports: Hx Orthopedic Surgery - left hip - Immunizations Hx Diphtheria, Pertussis, Tetanus Vaccination: Yes Physical Exam - Vital signs Vitals: Temp Pulse Resp BP Pulse Ox 98.2 F 105 H 18 144/83 H 96 09/06/18 10:11 09/06/18 10:11 09/06/18 10:11 09/06/18 10:11 09/06/18 10:11 Course - Vital Signs Vital signs: Temp Pulse Resp BP Pulse Ox 98.2 F 105 H 18 144/83 H 96 09/06/18 10:11 09/06/18 10:11 09/06/18 10:11 09/06/18 10:11 09/06/18 10:11
--- NOTE | 2018-09-06 11:06 | RADIOLOGY REPORT (SQ) ---
EXAM DESCRIPTION: CHEST 2 VIEWS COMPLETED DATE/TIME: 09/06/2018 10:53 am REASON FOR STUDY: Right chest and shoulder pain COMPARISON: 02/02/2015 EXAM PARAMETERS: NUMBER OF VIEWS: two views TECHNIQUE: Digital Frontal and Lateral radiographic views of the chest acquired. RADIATION DOSE: NA LIMITATIONS: none FINDINGS: LUNGS AND PLEURA: No opacities, masses or pneumothorax. No pleural effusion. MEDIASTINUM AND HILAR STRUCTURES: No masses or contour abnormalities. HEART AND VASCULAR STRUCTURES: Heart normal size. No evidence for failure. BONES: No acute findings. HARDWARE: None in the chest. OTHER: No other significant finding. IMPRESSION: No acute abnormality of the lungs. No focal airspace opacity. TECHNICAL DOCUMENTATION: JOB ID: [id number] [employer]- All Rights Reserved Reading location - IP/workstation name: [email or web address]
--- NOTE | 2018-09-06 11:07 | RADIOLOGY REPORT (SQ) ---
EXAM DESCRIPTION: SHOULDER RIGHT 2 OR MORE VIEWS COMPLETED DATE/TIME: 09/06/2018 10:53 am REASON FOR STUDY: Right chest and shoulder pain COMPARISON: None. NUMBER OF VIEWS: Three views. TECHNIQUE: Internal rotation, external rotation, and Y view images acquired of the right shoulder. LIMITATIONS: None. FINDINGS: MINERALIZATION: Normal. BONES: No acute fracture. No worrisome bone lesions. JOINTS: No dislocation. VISUALIZED LUNGS AND RIBS: No pneumothorax. No rib fracture. SOFT TISSUES: No radiopaque foreign body. OTHER: No other significant finding. IMPRESSION: No definite acute bony abnormality. TECHNICAL DOCUMENTATION: JOB ID: [id number] [employer]- All Rights Reserved Reading location - IP/workstation name: [email or web address]
[2018-09-06 11:26] LABS: ABSOLUTE BASOPHILS # (AUTO) 0.1 10^3/uL (0.0-0.2); ABSOLUTE EOSINOPHILS # (AUTO) 0.1 10^3/uL (0.0-0.6); ABSOLUTE LYMPHOCYTES (AUTO) 1.9 10^3/uL (0.5-4.7); ABSOLUTE MONOCYTES (AUTO) 0.7 10^3/uL (0.1-1.4); ABSOLUTE NEUT (AUTO) 2.2 10^3/uL (1.7-8.2); BASOPHILS % (AUTO) 1.1 % (0-2); EOSINOPHILS % (AUTO) 1.2 % (0-6); HEMATOCRIT 50.3 % (37.9-51.0); HEMOGLOBIN 16.8 g/dL (13.5-17.0); LYMPHOCYTES % (AUTO) 38.2 % (13-45); MEAN CORPUSCULAR HEMOGLOBIN 30.6 pg (27.0-33.4); MEAN CORPUSCULAR HGB CONC 33.4 g/dL (32.0-36.0); MEAN CORPUSCULAR VOLUME 91 fl (80-97); PLATELET COUNT 221 10^3/uL (150-450); RED CELL DISTRIBUTION WIDTH 13.6 % (11.5-14.0); SEGMENTED NEUTROPHILS % (AUTO) 45.5 % (42-78); TOTAL CELLS COUNTED % (AUTO) 100 %; WHITE BLOOD COUNT 4.9 10^3/uL (4.0-10.5)
[2018-09-06 11:37] LABS: INTERNATIONAL RATION (INR) 0.99; PROTHROMBIN TIME 13.1 SEC (11.4-15.4)
[2018-09-06 11:50] LABS: ALANINE AMINOTRANSFERASE 45 U/L (21-72); ALBUMIN 4.7 g/dL (3.5-5.0); ALKALINE PHOSPHATASE 72 U/L (38-126); ANION GAP 9 (5-19); ASPARTATE AMINO TRANSFERASE 48 U/L (17-59); BILIRUBIN,DIRECT 0.3 mg/dL (0.0-0.4); BILIRUBIN,TOTAL 0.5 mg/dL (0.2-1.3); BLOOD UREA NITROGEN 13 mg/dL (7-20); CALCIUM 10.1 mg/dL (8.4-10.2); CARBON DIOXIDE 22 mmol/L (22-30); CHLORIDE 109 mmol/L (98-107); CREATINE KINASE 220 U/L (55-170); GLUCOSE 112 mg/dL (75-110); POTASSIUM 4.5 mmol/L (3.6-5.0); TOTAL PROTEIN 8.2 g/dL (6.3-8.2)
[2018-09-06 12:09] LABS: CREATINE KINASE MB 1.74 ng/mL (<4.55)
[2018-09-06 12:10] LABS: TROPONIN I < 0.012 ng/mL
--- NOTE | 2018-09-06 15:49 | ER Document Report ---
ED General - General Chief Complaint: Chest Pain Stated Complaint: CHEST PAIN Time Seen by Provider: 09/06/18 10:29 Mode of Arrival: Ambulatory Notes: HPI: Patient is a 43-year-old male who presents today stating for 3 days he has had some right lateral neck pain radiating into the right chest and right arm. He denies any cough, shortness of breath, trauma, midline neck pain, difficulty breathing or swallowing, calf pain or leg swelling, or fevers. Patient works at [employer] and does do multiple rapidly alternating movements. ROS: See HPI All other review of systems reviewed and otherwise negative Reviewed vital signs and nursing note as charted by RN. PHYSICAL EXAM: CONSTITUTIONAL: Alert and oriented and responds appropriately to questions. Well-appearing; well-nourished HEAD: Normocephalic; atraumatic EYES: PERRL; Conjunctivae clear, sclerae non-icteric ENT: Normal nose; no rhinorrhea; moist mucous membranes; pharynx without lesions noted NECK: Supple without meningismus; to palpation along the midline spine with no swelling, erythema, or step-offs; patient has distinct point tenderness to the right posterior trapezius with no swelling or erythema CARD: Regular rate and rhythm; no murmurs; symmetric distal pulses RESP: Normal chest excursion without splinting or tachypnea; breath sounds clear and equal bilaterally ABD/GI: Normal bowel sounds; non-distended; soft, non-tender BACK: The back appears normal and is non-tender to palpation EXT: Normal ROM in all joints; no swelling or discoloration of the extremities. No muscle wasting noted. 5 out of 5 strength with sensation intact to light touch SKIN: No acute lesions noted NEURO: CN 2-12 intact; 5/5 bilateral upper and lower extremity strength with sensation intact to light touch PSYCH: The patient's mood and manner are appropriate. Grooming and personal hygiene are appropriate. TRAVEL OUTSIDE OF THE [place] IN LAST 30 DAYS: No - Related Data Allergies/Adverse Reactions: No Known Allergies Allergy (Verified 11/23/16 03:50) Past Medical History - General Information source: Patient - Social History Smoking Status: Current Every Day Smoker Chew tobacco use (# tins/day): No Frequency of alcohol use: Occasional Drug Abuse: None Family History: Arthritis, CAD, CVA, Hyperlipidemia, Hypertension, Malignancy Patient has suicidal ideation: No Patient has homicidal ideation: No - Past Medical History Cardiac Medical History: Reports: Hx Hypertension Neurological Medical History: Reports: Hx Migraine Endocrine Medical History: Reports: Hx Diabetes Mellitus Type 2 Renal/ Medical History: Denies: Hx Peritoneal Dialysis Musculoskeletal Medical History: Reports Hx Musculoskeletal Trauma - Right knee Past Surgical History: Reports: Hx Orthopedic Surgery - left hip - Immunizations Hx Diphtheria, Pertussis, Tetanus Vaccination: Yes Physical Exam - Vital signs Vitals: Temp Pulse Resp BP Pulse Ox 98.2 F 105 H 18 144/83 H 96 09/06/18 10:11 09/06/18 10:11 09/06/18 10:11 09/06/18 10:11 09/06/18 10:11 Course - Re-evaluation Re-evalutation: Given the history and physical examination, a host of laboratory values and imaging was ordered and triage. Cardiac panel as recorded. EKG as recorded. Patient denies absolutely any shortness of breath. The pain radiates from his right trapezius that has point tenderness down his right arm and into the upper right chest. X-ray of the chest shows no acute abnormality. 09/06/18 15:47 No change in exam. Troponin as recorded. Vital signs are stable. Heart rate 92. Given the above history and physical I do believe the patient has a radiculopathy down his right arm. Patient has no midline tenderness and has had no trauma. I do not believe an immediate x-ray is necessary at this moment. Patient has no history of diabetes. I will provide outpatient steroids, pain me dications, strict return precautions, and follow-up with orthopedics. - Vital Signs Vital signs: Temp Pulse Resp BP Pulse Ox 98.2 F 105 H 12 154/83 H 100 09/06/18 10:11 09/06/18 10:11 09/06/18 14:01 09/06/18 14:00 09/06/18 14:01 - Laboratory Result Diagrams: 09/06/18 11:05 09/06/18 11:05 Laboratory results interpreted by me: 09/06/18 09/06/18 11:05 11:05 Monocytes % 14.0 H Chloride 109 H Glucose 112 H Creatine Kinase 220 H Discharge - Discharge Clinical Impression: Radiculopathy affecting upper extremity Strain of right trapezius muscle Qualifiers: Encounter type: initial encounter Qualified Code(s): S45.320P - Strain of other muscles, fascia and tendons at shoulder and upper arm level, right arm, initial encounter Condition: Good Disposition: HOME, SELF-CARE Additional Instructions: Come back immediately for any increased pain, arm swelling, weakness or numbness, leg swelling, chest pain, fevers, or any other acute problems. Please follow-up with orthopedics as we have discussed. Please also take 600 mg of Motrin every 6 hours for the next 5 days. Prescriptions: Hydrocodone/Acetaminophen [[place] 5-325 mg Tablet] 1 tab PO Q6H #12 tablet Prednisone [Deltasone 20 mg Tablet] 3 tab PO DAILY 5 Days tablet Referrals: TRINIDAD BREWSTER MD [ACTIVE STAFF] - Follow up as needed
[2018-09-06] MEDS ORDERED: PREDNISONE 20 MG TABLET PO ONE (15:55)
[2018-09-06 16:23] VITALS: BP 142/89
--- NOTE | 2018-09-06 23:46 | EKG REPORT ---
SEVERITY:- OTHERWISE NORMAL ECG - SINUS TACHYCARDIA : Confirmed by: Jose R Griffin 06-Sep-2018 23:45:59
== END 2018-09-06 16:20 | disposition home or self-care (01) ==
LOC: ER 09:49
DX: S29.012A Strain of muscle and tendon of back wall of thorax, initial encounter (principal); X58.XXXA Exposure to other specified factors, initial encounter; M54.10 Radiculopathy, site unspecified; M54.2 Cervicalgia; R07.9 Chest pain, unspecified; M79.601 Pain in right arm; I10 Essential (primary) hypertension; E11.9 Type 2 diabetes mellitus without complications; F17.200 Nicotine dependence, unspecified, uncomplicated; Z82.49 Family history of ischemic heart disease and other diseases of the circulatory system
CPT/HCPCS: 93005; 99285; 36415; 82553; 82550; 83690; 85025; 85610; 80053; 84484; 71046; 73030; 93010; J7512

== ENCOUNTER 2018-11-24 02:12 | Emergency (ER) | payer SELFPAY ==
[2018-11-24 02:21] VITALS: BP 136/72
--- NOTE | 2018-11-24 02:59 | RADIOLOGY REPORT (SQ) ---
3 VIEWS OF RIGHT SHOULDER EXAM DATE: 11/24/2018 12:00 AM CDT HISTORY: Shoulder pain. COMPARISON: 09/06/2018 FINDINGS: No acute fracture or dislocation is seen. The joint spaces are preserved. The soft tissues are unremarkable. IMPRESSION: No acute fracture or malalignment.
--- NOTE | 2018-11-24 06:40 | EKG REPORT ---
SEVERITY:- ABNORMAL ECG - SINUS TACHYCARDIA LEFT ATRIAL ABNORMALITY ST ELEV, PROBABLE NORMAL EARLY REPOL PATTERN : Confirmed by: Casey Qiu MD 24-Nov-2018 06:39:51
== END 2018-11-24 05:39 | disposition left against medical advice (07) ==
LOC: ER 02:12
DX: Z53.21 Procedure and treatment not carried out due to patient leaving prior to being seen by health care provider (principal)
CPT/HCPCS: 93005; 93010

== ENCOUNTER → 2019-01-25 | Outpatient (CLI) | payer MEDICAID ==
--- NOTE | 2019-01-25 10:18 | RADIOLOGY REPORT (SQ) ---
EXAM DESCRIPTION: CERV SP 3 VIEW OR LESS COMPLETED DATE/TIME: 01/25/2019 8:28 am REASON FOR STUDY: M54.12 RADICULOPATHY, CERVICAL REGION M54.12 RADICULOPATHY, CERVICAL REGION COMPARISON: 04/20/2014 NUMBER OF VIEWS: Four views TECHNIQUE: AP, lateral and odontoid radiographic images acquired of the cervical spine. LIMITATIONS: None. FINDINGS: MINERALIZATION: Normal. ALIGNMENT: Straightening of the normal cervical lordosis, likely positional. VERTEBRAE: Vertebral bodies of normal height. DISCS: Mild disc height loss and endplate change at C5-6. Remaining disc spaces are well maintained. HARDWARE: None in the spine. SOFT TISSUES: No masses or calcifications. Lung apices clear. OTHER: No other significant finding. IMPRESSION: 1. No evidence of acute bony abnormality. 2. Mild degenerative changes greatest at C5-6. TECHNICAL DOCUMENTATION: JOB ID: [id number] [employer]- All Rights Reserved Reading location - IP/workstation name: [email or web address]
== END ==
LOC: RAD 08:09
PROVIDERS: ATTEND Family Medicine
DX: M54.12 Radiculopathy, cervical region (principal)
CPT/HCPCS: 72040